=== PATIENT | female | born 1945 | race Hispanic/Latino ===

== ENCOUNTER → 2025-01-07 | Outpatient (REF) | payer MEDICARE ==
[~2025-01-07] MED LIST: MELOXICAM7.5 MG PO; METOPROLOL TART25 MG PO; VITAMIN D1000 UNIT PO
== END ==
LOC: RAD 13:28
PROVIDERS: ATTEND Internal Medicine
DX: M54.6 Pain in thoracic spine (principal); M54.50 Low back pain, unspecified
CPT/HCPCS: 72072; 72110